=== PATIENT | female | born 1970 | race Caucasian/White ===

== ENCOUNTER 2023-02-03 01:01 | Observation (INO) | payer SELFPAY ==
[2023-02-03 01:12] VITALS: BP 139/74; PULSE 58; RESP 18; TEMP 36.9; O2SAT 97; BMI 29.0
--- NOTE | 2023-02-03 01:28 | W.ED.GENADLT ---
HPI - General Adult General: Chief complaint: Airway/Esophagus Foreign Body Stated complaint: fb in throat Time Seen by Provider: 02/03/23 01:03 Source: patient Mode of arrival: ambulatory Limitations: no limitations History of Present Illness: 53-year-old female states she is eating roughly 30 hours ago and got an esophageal food bolus states she not been able to swallow since then she states she able handles her saliva a little unable to handle fluids or solids. She been having pain in her distal esophagus as well. She has had a food bolus before and strictures. She was transferred here from [place] Associated symptoms: Deny chest pain, dyspnea, headache(s), nausea, rash or vomiting Review of Systems Const: Denies: fever(s) or chills ENMT: Reports: throat pain and odynophagia Card: Denies: chest pain Resp: Denies: dyspnea GI: Denies: nausea or vomiting Skin/Breast: Denies: rash Neuro: Denies: headache(s) Physical Exam Const: COMMON NORMALS: no acute distress and patient oriented x3 HENMT: COMMON NORMALS: normocephalic and atraumatic HEAD & SCALP: normocephalic and atraumatic Eye: COMMON NORMALS: conjunctivae normal CONJUNCTIVA: Yes conjunctivae normal Neck/C-Spine: COMMON NORMALS: supple Chest: COMMONS NORMALS: normal inspection of the chest Resp: COMMON NORMALS: normal respiratory effort Cardio: COMMON NORMALS: regular rate RATE: regular rate GI: INSPECTION: Yes normal to inspection Extremity: COMMON NORMALS: normal to inspection Neuro: COMMON NORMALS: patient oriented x3 Course Vital Signs: Vital signs: Vital Signs Temperature 98.4 F 02/03/23 01:12 Pulse Rate 61 02/03/23 01:56 Respiratory Rate 18 02/03/23 01:56 Blood Pressure 140/78 02/03/23 01:56 Pulse Oximetry 99 02/03/23 01:56 MDM - General Adult Medical Decision Making Patient presents with esophageal food impaction of spoke to surgeon on-call Dr. Scott will admit at this time for likely scope. Discharge Plan Discharge Patient Disposition: Placed in Observation Clinical Impression: Food impaction of esophagus Condition: Stable Referrals: Edvin Mayorga, [employer]IST[employer] OPERATOR [Primary Care Provider] - Coding Level of Care Code ED Immigration Investigator for Aranza Hartman
[2023-02-03] MEDS: ondansetron 2 mg/ML SDV 2 mL 4 MG IVP (01:35)
[2023-02-03] MEDS: glucagon 1 mg/mL KIT 1 mL IM (01:35)
[2023-02-03] MEDS: morphine 4 mg/mL SDV 1 mL IVP (01:35)
[2023-02-03] MEDS: sodium chloride 0.9% 1,000 ML 999 ML IV (01:41)
[2023-02-03 01:56] VITALS: BP 140/78; PULSE 61; RESP 18; O2SAT 99
[2023-02-03 03:08] VITALS: BMI 29.1
[2023-02-03] MEDS: sodium chloride 0.9% 1,000 ML 100 ML IV (03:15)
[2023-02-03 04:00] VITALS: BP 105/66; PULSE 70; RESP 17; TEMP 36.6; O2SAT 97
--- NOTE | 2023-02-03 08:05 | PC.NURSE ---
Patient states, I am ready to go. I already vomited up this chunk of meat and I can swallow just fine now. I want to leave. Encouraged patient to wait to see the surgeon. Patient states, Look (patient took a drink of soda) I can swallow it just fine. Yesterday when I came when I swallowed it took my breath away or I vomited. I am able to swallow this and talk without any difficulty. I have waited my wait and I want to go home. Explained to patient that this could result in . Patient states, I will be fine. Dr. Scott notified. Patient is A&Ox3. Respirations even and non-labored on room air. Patient is able to swallow without and noticeable difficulty. Patient ambulated from the floor with a steady gait.
[2023-02-03 08:28] VITALS: BP 105/66; PULSE 70; RESP 17; TEMP 36.6; O2SAT 97
== END 2023-02-03 08:05 | disposition left against medical advice (07) ==
LOC: ER 02:02 → MEDSURG 02:48
PROVIDERS: Admitting Provider Surgery; Emergency Provider Emergency Medicine; PCP Nurse Practitioner Family; Visit Provider Surgery
DX: T18.128A Food in esophagus causing other injury, initial encounter (principal); X58.XXXA Exposure to other specified factors, initial encounter
CPT/HCPCS: 96361; 96372; 96374; 96375; 99285; G0378; J1610; J2270; J2405; J7030